=== PATIENT | female | born 2000 | race Caucasian/White ===

== ENCOUNTER 2021-01-22 17:39 | Emergency (ER) | payer BC ==
[2021-01-22] MEDS ORDERED: TETRACAINE 0.5% OPHTH SOLN 2 ML BOTTLE OS ONE (18:07)
[2021-01-22] MEDS ORDERED: ERYTHROMYCIN 0.5% OPHTHALMIC OINTMENT 3.5 GM TUBE OS ONE (18:07)
[2021-01-22] MEDS ORDERED: FLUORESCEIN NA 1 EA STRIP OS ONE (18:07)
[2021-01-22] MEDS ORDERED: ACETAMINOPHEN 500 MG TABLET (FP) PO ONE (18:08)
[2021-01-22 18:10] VITALS: TEMP 97.8; BMI 35.5
[2021-01-22] MEDS ORDERED: TETRACAINE 0.5% OPHTH SOLN 2 ML BOTTLE ONE (18:13)
[2021-01-22] MEDS ORDERED: FLUORESCEIN NA 1 EA STRIP ONE (18:13)
[2021-01-22] MEDS ORDERED: ERYTHROMYCIN 0.5% OPHTHALMIC OINTMENT 3.5 GM TUBE ONE (18:14)
[2021-01-22] MEDS ORDERED: ACETAMINOPHEN 500 MG TABLET (FP) ONE (18:14)
[2021-01-22] MEDS ORDERED: DIPHTH,PERTUSS(ACELL),TET 0.5 ML DISP.SYRIN IM ONE ×2 (18:39→18:52)
[2021-01-22] MEDS ORDERED: KETOROLAC TROMETHAMINE 30 MG/1 ML VIAL IM ONE (19:37)
[2021-01-22] MEDS ORDERED: KETOROLAC TROMETHAMINE 30 MG/1 ML VIAL ONE (19:51)
[2021-01-22 20:00] VITALS: BP 112/71; PULSE 64
== END 2021-01-22 20:02 | disposition home or self-care (01) ==
LOC: JERFT 17:39 → JER 17:39 → JERFT 20:02
PROC: 3E0234Z Introduction of Serum, Toxoid and Vaccine into Muscle, Percutaneous Approach (ICD-10-PCS; principal; 2021-01-22)
PROC: 3E0233Z Introduction of Anti-inflammatory into Muscle, Percutaneous Approach (ICD-10-PCS; 2021-01-22)
DX: S09.93XA Unspecified injury of face, initial encounter (principal); R51.9 Headache, unspecified; S05.02XA Injury of conjunctiva and corneal abrasion without foreign body, left eye, initial encounter
CPT/HCPCS: 70450-TC; 70486-TC; 72125-TC; 90715; 99285-25